=== PATIENT | female | born 1965 | race Caucasian/White ===

== ENCOUNTER → 2023-06-02 10:25 | Outpatient (REF) | payer OTHER, SELFPAY | LOC: DHCBC MAIN 10:25 | PROVIDERS: ATTENDING PHYSICIAN Internal Medicine Cardiovascular Disease; FAMILY PHYSICIAN Family Medicine | DX: R60.0 Localized edema (principal) | CPT/HCPCS: 93306 ==

== ENCOUNTER → 2023-06-18 07:55 | Outpatient (REF) | payer OTHER, SELFPAY | LOC: RAD 07:55 | PROVIDERS: ATTENDING PHYSICIAN Internal Medicine Cardiovascular Disease; FAMILY PHYSICIAN Family Medicine | DX: R60.0 Localized edema (principal) | CPT/HCPCS: 93970 ==

== ENCOUNTER 2024-01-10 20:51 | Emergency (ER) | payer OTHER, SELFPAY ==
[2024-01-10 20:53] VITALS: BP 152/92
--- NOTE | 2024-01-10 23:44 | ED.GENMED ---
History of Present Illness
General
Chief Complaint: Cold/Flu/URI Symptoms
Source: patient
Exam Limitations: none
Time Seen by Provider: 01/10/24 23:38
Nursing documentation reviewed up to this point in time: agreed with
History of Present Illness
History of Present Illness:
Patient is a 58-year-old female who presents to the ER for continued cough. Patient started with cough 7 days ago on Wednesday and was seen by family doctor Wednesday and diagnosed with COVID. She denies any fevers or shortness of breath but
complains of persistent cough despite being on Tessalon. She also is on antibiotics. She has an albuterol inhaler but just used recently and only once per day. Patient is a former smoker .
Past History
Past History
ED Past Medical History: Other (Irritable bowel syndrome) and Other (Endometriosis)
ED Past Surgical History: Gynecological (Ovarian surgery)
Social History
Tobacco: Non-smoker
Alcohol: Occasional
Drug: None
Personal:
Living: with family
Employment: Employed
Family History
Family History: Other (Noncontributory)
Review of Systems
Review of Systems
Allergies reviewed?: Yes
All Other Systems: ROS reviewed and negative except as documented in HPI and ROS
Constitutional: Reports no symptoms; Denies fever
Respiratory: Reports cough; Denies trouble breathing
Cardiac: Reports no symptoms
ABD/GI: Reports no symptoms
: Reports no symptoms
Musculoskeletal: Reports no symptoms
Skin: Reports no symptoms
Neurological: Reports no symptoms
Hematologic/Lymphatic: Reports no symptoms
Psychiatric: Reports no symptoms
Phy Exam
General Physical Exam
General Presentation: no apparent distress
General age: appears stated age
General Skin: warm and dry
General Habitus: normal
General Mental: alert
General Hydration: appears well hydrated
Cardiovascular Exam
Cardiovascular Exam: regular rate/rhythm, no murmur and normal peripheral pulses
Pulmonary Exam
Pulmonary Exam: lungs clear, no respiratory distress and other (dry cough )
Neurological Exam
Neurological Exam: alert and oriented x3
Musculoskeletal Exam
Musculoskeletal Exam: full ROM
Skin Exam
Skin Exam: normal color and warm/dry
Psychiatric Exam
Psychiatric Exam: normal mood/affect
Course
Orders/Labs/Results
Orders:
Orders
01/11/24 00:44
Chest [CR Chest - 2 Views ] Urgent
Comment:
Reason For Exam: cough
Vital Signs
Initial and Last Documented VS:
Initial Vital Signs
Temp Pulse Resp BP Pulse Ox
98.8 F 116 18 152/92 97
01/10/24 20:53 01/10/24 20:53 01/10/24 20:53 01/10/24 20:53 01/10/24 20:53
Last Documented Vital Signs
Temp Pulse Resp BP Pulse Ox
98.8 F 71 20 133/67 94
01/10/24 20:53 01/11/24 01:32 01/11/24 01:32 01/11/24 01:32 01/11/24 01:32
MDM/Problems Addressed
Differential Diagnosis Includes:
Not limited to bronchitis less likely pneumonia likely viral COVID symptoms
MDM/Problems Addressed:
Patient positive for COVID on Wednesday as per family doctor complains of continued cough however no shortness of breath. Patient presents awake alert nontoxic afebrile lungs are clear. Nontachypneic , nonhypoxic. She has inhaler but only use
that once per day if that. She has been using Tessalon without relief. She also completed antibiotics. Will obtain chest x-ray to rule out pneumonia however likely persistent cough COVID related she does feel that there is postnasal drip will add
on Flonase encourage albuterol inhaler using more 2 puffs every 4-6 hours.
Chest x-ray reviewed with ED physician no obvious infiltrate questionable small nodule/opacity right lobe discussed with patient importance of having family doctor follow-up with formal results
*Radiology
Radiology exam reviewed: preliminary read by ED provider (No acute infiltrate small nodule right lobe)
*Pulse Oximetry
Patient hypoxic: no
*Critical Care Note
Total Time (30-74mins, 75-104mins- exclusive of procedures): Not Applicable
ED Attending Note
-
Portions of this chart may have been created with voice recognition software.� Occasional wrong word or��sound alike� substitutions may have occurred due to the inherent limitations of voice recognition software.
Discharge Plan
Departure
Patient Disposition: Home (Routine Discharge)
Date of Disposition: 01/11/24
Time of Disposition: 01:55
Patient with high blood pressure during this ER visit?: Yes
Condition: Fair
Covid-19: Not Applicable
Discharge Problem:
COVID-19, Cough
Instructions: COVID-19 ED, Cough, Adult ED, BLOOD PRESSURE
Prescriptions:
No Action
atorvastatin 40 MG tablet
40 mg PO DAILY
ibuprofen [Advil Liqui-Gel] 200 MG capsule
200 mg PO Q6H PRN (Reason: pain)
topiramate 25 MG tablet
25 mg PO BID
aspirin [Aspir-Low] 81 MG tablet,delayed release (DR/EC)
81 mg PO DAILY
fluticasone propionate [Flovent HFA] 1 PUFF HFA aerosol inhaler
1 puff inhalation R BID
escitalopram oxalate 10 MG tablet
10 mg PO DAILY
Lorazepam 0.5 MG Tablet
0.5 mg PO Q6H PRN (Reason: anxiety)
gabapentin 100 mg Tablet
100 mg PO DAILY
levothyroxine 75 mcg Tablet
75 mcg PO DAILY
metoprolol succinate 25 mg Tablet Extended Release 24 Hr
25 mg PO DAILY
albuterol sulfate 90 mcg/actuation Hfa Aerosol Inhaler
2 puff INHALATION BID PRN (Reason: sob)
cholecalciferol (vitamin D3) [Vitamin D3] 125 mcg (5,000 unit) Tablet
125 mcg PO DAILY
Referrals:
Umair Wilson MD [Family Provider] -
Activity Restrictions/Additional Instructions:
As discussed continue to use inhaler however use 2 puffs every 4-6 hours. Continue Tessalon and it is recommended that you use Flonase [id number] stay well-hydrated. Return if any worsening of symptoms including fever or shortness of breath.
Follow-up with your family doctor the next of days return if any worsening of symptoms
Interventions
Interventions:
*Risk Screen - Suicide Last Done: 01/10/24 20:53
*General Assessment Last Done: 01/10/24 20:53
*Neglect/Abuse Screening Last Done: 01/10/24 20:53
ED- Fall Risk Assessment Last Done: 01/10/24 23:35
ED- Pulmonary Assessment Last Done: 01/10/24 23:35
Discharge Date and Time
Print Language: FRENCH
[2024-01-11] VITALS: BP 133/80
[2024-01-11 01:31] VITALS: BP 133/67
[2024-01-11 01:32] VITALS: BP 133/67
[2024-01-11 02:00] VITALS: BP 131/76
--- NOTE | 2024-01-17 10:31 | OID.L.PAT ---
Pulmonary Nodule Pat Letter
- -
01/17/24
KIEL FIRER
[address]
[place], [place]
Dear KIEL,
A pulmonary nodule was seen on an imaging study done by [facility]. This was reviewed by the [facility] Pulmonary Nodule Advisory Board and the following recommendation was made:
Recommendation: Follow up CT Chest - now
If you have any questions, please do not hesitate to contact your primary care physician. If you are in need of a Physician, you can go to [email or web address] and click on 'Find a Provider'. Type 'Family Medicine' in the search.
Oncology Nurse Navigator
[facility]
[phone]
--- NOTE | 2024-01-17 10:32 | OID.L.REC ---
Pulmonary Nodule Follow Up
- Recommendation
01/17/24
Pulmonary Nodule Review Recommendations
Your patient, KIEL GARZA, had a pulmonary nodule seen on an imaging study done on 01/11/24 in the [facility].
This was reviewed by the [facility] Pulmonary Nodule Advisory Board and the following recommendation was made:
Recommendation: Follow up CT Chest - now
If you have any questions please do not hesitate to contact us.
Sincerely,
Oncology Nurse Navigator
[facility]
[phone]
== END 2024-01-11 02:10 | disposition home or self-care (01) ==
LOC: EMR 20:51
PROVIDERS: EMERGENCY PHYSICIAN Emergency Medicine; FAMILY PHYSICIAN Family Medicine
DX: U07.1 COVID-19 (principal); R05.9 Cough, unspecified; R03.0 Elevated blood-pressure reading, without diagnosis of hypertension
CPT/HCPCS: 99283; 71046

== ENCOUNTER 2024-06-01 16:16 | Emergency (ER) | payer OTHER, SELFPAY ==
[2024-06-01 16:18] VITALS: BP 136/70
--- NOTE | 2024-06-01 18:22 | ED.GENMED ---
History of Present Illness
General
Chief Complaint: DVT/Possible Blood Clot
Source: patient
Exam Limitations: none
Time Seen by Provider: 06/01/24 16:27
Nursing documentation reviewed up to this point in time: agreed with
History of Present Illness
History of Present Illness:
Patient to ED with complaint of pain to right posterior knee and calf. Symptoms started 2 weeks ago but now notes swelling to calf. Denies fever/chillls, recent illness. No history of trauma. No prior history of same. Brought to ED by spouse
for same.
Past History
Past History
ED Past Medical History: Other (Irritable bowel syndrome) and Other (Endometriosis)
ED Past Surgical History: Gynecological (Ovarian surgery)
Social History
Tobacco: Non-smoker
Alcohol: Occasional
Drug: None
Personal:
Living: with family
Employment: Employed
Family History
Family History: Other (Noncontributory)
Review of Systems
Review of Systems
Allergies reviewed?: Yes
All Other Systems: ROS reviewed and negative except as documented in HPI and ROS
Constitutional: Reports no symptoms
Musculoskeletal: Reports other (Pain to right posteior knee and cafl)
Skin: Reports no symptoms
Neurological: Reports no symptoms
Psychiatric: Reports no symptoms
Phy Exam
General Physical Exam
General Presentation: well appearing and no apparent distress
General age: appears stated age
General Skin: warm and dry
General Habitus: normal
General Mental: alert
Musculoskeletal Exam
Musculoskeletal Exam: full ROM, neuro vasc intact and other (Swelling to right calf. No erythema, no bruising, no wounds)
Skin Exam
Skin Exam: normal color, warm/dry and no rash
Psychiatric Exam
Psychiatric Exam: normal mood/affect
Course
Orders/Labs/Results
Orders:
Orders
06/01/24 16:23
US Periph Venous LOWER Ext RT Urgent
Comment:
Reason For Exam: pain in leg
Vital Signs
Initial and Last Documented VS:
Initial Vital Signs
Temp Pulse Resp BP Pulse Ox
98.0 F 69 16 136/70 98
06/01/24 16:18 06/01/24 16:18 06/01/24 16:18 06/01/24 16:18 06/01/24 16:18
Last Documented Vital Signs
Temp Pulse Resp BP Pulse Ox
98.0 F 69 16 136/70 98
06/01/24 16:18 06/01/24 16:18 06/01/24 16:18 06/01/24 16:18 06/01/24 16:18
*Radiology
Radiology exam reviewed: radiology read reviewed
*Pulse Oximetry
Patient hypoxic: no
*Critical Care Note
Total Time (30-74mins, 75-104mins- exclusive of procedures): Not Applicable
Update Note
Update Note:
US report reviewed, neg. DVT. Presence of fluid noted behind knee into calf most likely ruptured bakers cyst. Will discharge home, she will continue to ice, follow up with PCP. Given number for ortho for follow up as needed.
ED Attending Note
-
Portions of this chart may have been created with voice recognition software.� Occasional wrong word or��sound alike� substitutions may have occurred due to the inherent limitations of voice recognition software.
Discharge Plan
Departure
Patient Disposition: Home (Routine Discharge)
Date of Disposition: 06/01/24
Time of Disposition: 18:20
Patient with high blood pressure during this ER visit?: No
Condition: Good
Covid-19: Not Applicable
Discharge Problem:
Ruptured Bakers cyst
Instructions: Nuno's Cyst (DC), RICE Therapy
Prescriptions:
No Action
atorvastatin 40 MG tablet
40 mg PO DAILY
ibuprofen [Advil Liqui-Gel] 200 MG capsule
200 mg PO Q6H PRN (Reason: pain)
topiramate 25 MG tablet
25 mg PO BID
aspirin [Aspir-Low] 81 MG tablet,delayed release (DR/EC)
81 mg PO DAILY
fluticasone propionate [Flovent HFA] 1 PUFF HFA aerosol inhaler
1 puff inhalation R BID
escitalopram oxalate 10 MG tablet
10 mg PO DAILY
Lorazepam 0.5 MG Tablet
0.5 mg PO Q6H PRN (Reason: anxiety)
gabapentin 100 mg Tablet
100 mg PO DAILY
levothyroxine 75 mcg Tablet
75 mcg PO DAILY
metoprolol succinate 25 mg Tablet Extended Release 24 Hr
25 mg PO DAILY
albuterol sulfate 90 mcg/actuation Hfa Aerosol Inhaler
2 puff INHALATION BID PRN (Reason: sob)
cholecalciferol (vitamin D3) [Vitamin D3] 125 mcg (5,000 unit) Tablet
125 mcg PO DAILY
Referrals:
Octavio Krishnamurthy MD [Active] - Next open appointment
Uamir Wilson MD [Family Provider] -
Interventions
Interventions:
*Risk Screen - Suicide Last Done: 06/01/24 16:18
*General Assessment Last Done: 06/01/24 16:18
*Neglect/Abuse Screening Last Done: 06/01/24 16:18
*ED COVID-19 Vaccine History Last Done: 06/01/24 16:18
Discharge Date and Time
Print Language: LITHUANIAN
== END 2024-06-01 18:38 | disposition home or self-care (01) ==
LOC: EMR 16:16
PROVIDERS: EMERGENCY PHYSICIAN Emergency Medicine; FAMILY PHYSICIAN Family Medicine
DX: M66.0 Rupture of popliteal cyst (principal); K58.9 Irritable bowel syndrome, unspecified; N80.9 Endometriosis, unspecified
CPT/HCPCS: 99284; 93971